=== PATIENT | male | born 1980 | race Two or more races ===

== ENCOUNTER 2022-01-26 20:51 | Emergency (ER) | payer MEDICAID ==
[~2022-01-26] VITALS: Ht 165.1 cm; Wt 80.0 kg
[2022-01-26] MEDS ORDERED: TOPUD PO (22:20)
[2022-01-26] MEDS ORDERED: IBUP-2028 MT (22:20)
[2022-01-26] MEDS ORDERED: IBUPROFEN 400MG TABLET PO ONE (22:30)
[2022-01-26] MEDS ORDERED: ACETAMINOPHEN 325MG TABLET PO ONE (22:30)
[2022-01-27] VITALS: BP 122/78
== END 2022-01-27 | disposition home or self-care (01) ==
LOC: ER 20:51
DX: S93.491A Sprain of other ligament of right ankle, initial encounter (principal); W22.09XA Striking against other stationary object, initial encounter; Y93.01 Activity, walking, marching and hiking; Y92.488 Other paved roadways as the place of occurrence of the external cause
CPT/HCPCS: 73610; 99283

== ENCOUNTER 2023-12-06 21:25 | Emergency (ER) | payer MEDICAID ==
[~2023-12-06] VITALS: Ht 170.2 cm; Wt 110.0 kg
[~2023-12-06 21:25] MED LIST: ASPI-1160 PO; CLOP-31 PO; IBUP-2028 MT; INSU100I28 SQ; LIP40 PO; QUET50TA PO; TOPUD PO
[2023-12-06 21:30] VITALS: O2SAT 98
[2023-12-06] MEDS ORDERED: ONDANSETRON HCL 4MG/2ML INJ IV ONE (21:45)
[2023-12-06] MEDS ORDERED: MORPHINE SULFATE 4 MG/ML INJ (FOR IV/IM USE) IV ONE (21:45)
[2023-12-06 23:06] LABS: BASOPHILS % 0.3 % (0.0-2.0); EOSINOPHILS % 2.4 % (0.0-5.0); HEMATOCRIT. 43.2 % (42.0-52.0); HEMOGLOBIN. 14.5 g/dL (14.0-18.0); LYMPHOCYTES % 40.1 % (20.0-50.0); MEAN CORPUSCULAR HEMOGLOBIN 30.1 pg (28.0-32.0); MEAN CORPUSCULAR HGB CONC 33.6 g/dL (31.0-37.0); MEAN CORPUSCULAR VOLUME 89.5 fL (80.0-94.0); MEAN PLATELET VOLUME 8.6 fl (7.4-10.4); MONOCYTES % 10.5 % (2.0-8.0); NEUTROPHILS % 46.7 % (40.0-76.0); PLATELET 277 x1000/uL (130-400); RED BLOOD CELL COUNT 4.82 mill/uL (4.7-6.1); RED CELL DISTRIBUTION WIDTH 13.5 % (11.6-14.6); WHITE BLOOD COUNT 7.9 x1000/uL (4.5-11.0)
[2023-12-06 23:13] LABS: CHLORIDE 104 mEq/L (98-107); POTASSIUM 3.7 mEq/L (3.5-5.1); SODIUM 137 mEq/L (136-145)
[2023-12-06 23:14] LABS: CARBON DIOXIDE 25 mEq/L (21-32)
[2023-12-06 23:15] LABS: CALCIUM 9.5 mg/dL (8.7-10.4)
[2023-12-06 23:19] LABS: CREATININE 0.9 mg/dL (0.6-1.3); GLUCOSE 254 mg/dL (70-105); INR 0.9; PARTIAL THROMBOPLASTIN TIME 26.2 sec (23.4-31.0); PROTHROMBIN TIME 9.8 sec (9.6-11.0); UREA NITROGEN BLOOD 15 mg/dL (9-23)
[2023-12-06 23:20] LABS: TROPONIN I HIGH SENSITIVITY 4 ng/L (3.0-53)
[2023-12-06 23:21] LABS: ALANINE AMINOTRANSFERASE 23 IU/L (10-49); ALBUMIN 4.8 g/dL (3.2-4.8); ASPARTATE AMINOTRANSFERASE 22 IU/L (<34)
[2023-12-06 23:22] LABS: BILIRUBIN TOTAL 1.3 mg/dL (0.1-1.0)
[2023-12-07] MEDS: MORPHINE SULFATE 4 MG/ML INJ (FOR IV/IM USE) IV NR (00:08)
[2023-12-07] MEDS: ONDANSETRON HCL 4MG/2ML INJ IV NR (00:09)
[2023-12-07 00:10] VITALS: BP 117/80; PULSE 98; RESP 16; TEMP 98.6
== END 2023-12-07 00:14 | disposition home or self-care (01) ==
LOC: ER 21:25
DX: R51.9 Headache, unspecified (principal); R42 Dizziness and giddiness; I69.30 Unspecified sequelae of cerebral infarction; I10 Essential (primary) hypertension; E11.9 Type 2 diabetes mellitus without complications; Z88.8 Allergy status to other drugs, medicaments and biological substances; Z79.82 Long term (current) use of aspirin
CPT/HCPCS: 36415; 71045; 80053; 83880; 84484; 85025; 99284

== ENCOUNTER 2024-08-03 13:34 | Emergency (ER) | payer MEDICAID ==
[~2024-08-03] VITALS: Ht 160 cm; Wt 79.0 kg
[~2024-08-03 13:34] MED LIST changes: -IBUP-2028 MT
[2024-08-03 13:36] VITALS: TEMP 36.7; O2SAT 98
[2024-08-03 15:47] LABS: BASOPHILS % 0.2 % (0.0-2.0); EOSINOPHILS % 1.6 % (0.0-5.0); HEMATOCRIT. 41.2 % (42.0-52.0); HEMOGLOBIN. 13.6 g/dL (14.0-18.0); LYMPHOCYTES % 35.8 % (20.0-50.0); MEAN CORPUSCULAR HEMOGLOBIN 30.1 pg (28.0-32.0); MEAN CORPUSCULAR HGB CONC 33.1 g/dL (31.0-37.0); MEAN PLATELET VOLUME 9.4 fl (7.4-10.4); MONOCYTES % 6.9 % (2.0-8.0); NEUTROPHILS % 55.5 % (40.0-76.0); PLATELET 247 x1000/uL (130-400); RED BLOOD CELL COUNT 4.53 mill/uL (4.7-6.1); RED CELL DISTRIBUTION WIDTH 13.9 % (11.6-14.6); WHITE BLOOD COUNT 6.7 x1000/uL (4.5-11.0)
[2024-08-03 15:48] LABS: CHLORIDE 103 mEq/L (98-107); POTASSIUM 4.1 mEq/L (3.5-5.1); SODIUM 138 mEq/L (136-145)
[2024-08-03 15:49] LABS: CALCIUM 9.4 mg/dL (8.7-10.4); CARBON DIOXIDE 26 mEq/L (21-32)
[2024-08-03] MEDS: LEVETIRACETAM 1000MG PREMIX 1,000 ML IV ONE (15:53)
[2024-08-03 15:54] LABS: GLUCOSE 280 mg/dL (70-105); UREA NITROGEN BLOOD 18 mg/dL (9-23)
[2024-08-03] MEDS: SODIUM CHLORIDE 0.9% 1,000 ML IV ONE (15:54)
[2024-08-03 15:56] LABS: CREATINE KINASE 153 IU/L (46-171)
[2024-08-03 16:01] LABS: LACTIC ACID 2.5 mmol/L (0.4-2.0)
[2024-08-03 16:10] LABS: ETHANOL BLOOD < 10 mg/dL (<10)
[2024-08-03] MEDS: MORPHINE SULFATE 4 MG/ML INJ (FOR IV/IM USE) IV ONE (20:31)
[2024-08-03 20:47] VITALS: BP 106/55; PULSE 65; RESP 16; O2SAT 99
== END 2024-08-03 20:52 | disposition home or self-care (01) ==
LOC: ER 13:34
DX: E11.9 Type 2 diabetes mellitus without complications (principal); R56.9 Unspecified convulsions; Z79.02 Long term (current) use of antithrombotics/antiplatelets; Z79.4 Long term (current) use of insulin; Z79.82 Long term (current) use of aspirin; Z79.899 Other long term (current) drug therapy; Z88.8 Allergy status to other drugs, medicaments and biological substances
CPT/HCPCS: 80048; 80320; 82550; 83605; 85025; 36415; 71045; 70450; 72125; 93005; 96365; 96366; 99285; J7030; Z7610 ×2; A4606; J2270; G0480

== ENCOUNTER 2025-03-12 13:52 | Inpatient (IN) | payer MEDICAID ==
[~2025-03-12] VITALS: Ht 157.5 cm; Wt 86.6 kg
[2025-03-12 13:59] VITALS: O2SAT 97
[2025-03-12 14:25] LABS: BASOPHILS % 0.3 % (0.0-2.0); EOSINOPHILS % 1.3 % (0.0-5.0); HEMATOCRIT. 43.0 % (42.0-52.0); HEMOGLOBIN. 14.5 g/dL (14.0-18.0); LYMPHOCYTES % 22.9 % (20.0-50.0); MEAN PLATELET VOLUME 8.3 fl (7.4-10.4); MONOCYTES % 6.5 % (2.0-8.0); NEUTROPHILS % 69.0 % (40.0-76.0); PLATELET 287 x1000/uL (130-400); RED BLOOD CELL COUNT 4.88 mill/uL (4.7-6.1); RED CELL DISTRIBUTION WIDTH 13.4 % (11.6-14.6)
[2025-03-12] MEDS ORDERED: LEVETIRACETAM 1000MG PREMIX 100 ML IV ONE (14:30)
[2025-03-12 14:40] LABS: CREATININE 1.0 mg/dL (0.6-1.3); UREA NITROGEN BLOOD 18 mg/dL (9-23)
[2025-03-12] MEDS: SODIUM CHLORIDE 0.9% 1,000 ML IV ONE (16:01)
[2025-03-12] MEDS: LORAZEPAM 2MG/ML UD SYRINGE IV ONE (16:01)
[2025-03-12 17:38] VITALS: BP 96/68; PULSE 84; RESP 15; TEMP 36.1; O2SAT 97
[2025-03-12 18:23] VITALS: BP 96/68; PULSE 84; RESP 15; TEMP 36.0844
[2025-03-12] MEDS ORDERED: EMPA25TA MT (18:51)
[2025-03-12 20:00] VITALS: BP 97/68; PULSE 89; RESP 20; TEMP 36.5; O2SAT 98
[2025-03-12] MEDS ORDERED: DOCUSATE SODIUM 100MG CAPSULE PO PRN (20:15)
[2025-03-12] MEDS ORDERED: CLONIDINE 0.1MG TABLET PO PRN (20:15)
[2025-03-12] MEDS ORDERED: LORAZEPAM 2MG/ML UD SYRINGE IV PRN (20:15)
[2025-03-12] MEDS ORDERED: ONDANSETRON HCL 4MG/2ML INJ IV PRN (20:15)
[2025-03-12] MEDS ORDERED: ACETAMINOPHEN 325MG TABLET PO PRN ×2 (20:15)
[2025-03-12] MEDS ORDERED: DEXTROSE 50% WATER 50ML SYRINGE IV PRN (20:15)
[2025-03-12] MEDS ORDERED: IPRATROPIUM/ALBUTEROL 0.5-3(2.5)MG/3ML NEB HHN PRN (20:15)
[2025-03-12] MEDS: BLOOD SUGAR DIAGNOSTIC STRIP TEST SCH (20:53)
[2025-03-12] MEDS: INSULIN LISPRO 100 UNITS/ML SUBCUT SCH (20:53)
[2025-03-12] MEDS: INSULIN GLARGINE 100 UNITS/ML SUBCUT SCH (20:53)
[2025-03-12] MEDS ORDERED: LEVETIRACETAM 500MG PREMIX 100 ML IV SCH (21:00)
[2025-03-13] VITALS: BP 105/78; PULSE 81; RESP 18; TEMP 36.5; O2SAT 97
[2025-03-13 04:00] VITALS: BP 98/55; PULSE 75; RESP 20; TEMP 36.7; O2SAT 97
[2025-03-13 08:00] VITALS: BP 105/70; PULSE 72; RESP 18; TEMP 36.4; O2SAT 98
[2025-03-13] MEDS: CLOPIDOGREL 75MG TABLET PO SCH (09:12)
[2025-03-13] MEDS: ASPIRIN 81MG TABLET PO SCH (09:12)
[2025-03-13] MEDS: ENOXAPARIN 30MG/0.3ML SYR SUBCUT SCH (09:12)
[2025-03-13 12:00] VITALS: BP 103/80; PULSE 70; RESP 18; TEMP 36.7; O2SAT 97
[2025-03-13] MEDS ORDERED: LACO100T2 PO (15:16)
[2025-03-13 16:00] VITALS: BP 106/77; PULSE 65; RESP 16; TEMP 36.8; O2SAT 99
[2025-03-13 16:26] VITALS: BP 106/77; PULSE 65; RESP 18; TEMP 98.2
[2025-03-13] MEDS ORDERED: ATORVASTATIN CALCIUM 40MG TABLET PO SCH (21:00)
[2025-03-13] MEDS ORDERED: QUETIAPINE FUMARATE 50MG TABLET PO SCH (21:00)
== END 2025-03-13 17:30 | disposition home or self-care (01) | DRG 53 ==
LOC: ER 13:52 → 7WST 16:17 → EDBEDREQTM 16:20 → EDBEDREQ 16:20 → 7WST 03-13 00:49
PROVIDERS: ADMIT Internal Medicine; ATTEND Internal Medicine
DX: G40.909 Epilepsy, unspecified, not intractable, without status epilepticus (principal); I69.351 Hemiplegia and hemiparesis following cerebral infarction affecting right dominant side; E11.9 Type 2 diabetes mellitus without complications; E66.9 Obesity, unspecified; Z79.4 Long term (current) use of insulin; Z88.8 Allergy status to other drugs, medicaments and biological substances; Z68.34 Body mass index [BMI] 34.0-34.9, adult
CPT/HCPCS: 36415; 80048; 80320; 80339; 82962; 83036; 85025; 93005; 96361; 96374; 99291; J1650; J1815; J1953; J2060; G0480